=== PATIENT | female | born 1980 | race Caucasian/White ===

== ENCOUNTER 2020-11-07 07:59 | Emergency (ER) | payer OTHER ==
[2020-11-07 08:48] LABS: BILIRUBIN NEGATIVE (NEGATIVE); BLOOD 3+ Ery/uL (NEGATIVE); COLOR YELLOW (YELLOW); GLUCOSE (U) NORMAL (NORMAL); LEUKOCYTES 2+ Leu/uL (NEGATIVE); NITRITE NEGATIVE (NEGATIVE); PROTEIN 1+ mg/dL (NEGATIVE); SPECIFIC GRAVITY 1.025 (1.001-1.030); UROBILINOGEN 0.2 mg/dL (0.2-1.0)
[2020-11-07 08:49] LABS: CLARITY CLOUDY (CLEAR)
[2020-11-07 08:55] LABS: BACTERIA 2+; URINARY RBC 20-50
[2020-11-07 09:09] LABS: BASOPHIL 0.7 % (0-2); EOSINOPHIL 1.4 % (0-5); HGB 13.6 g/dl (12.5-16.0); LYMPHOCYTE 13.1 % (15-48); MCH 30.7 pg (25.0-31.0); MCHC 32.4 g/dL (32.0-36.0); MCV 94.8 fL (78.0-100.0); MONOCYTE 6.8 % (0-12); MPV 11.4 fL (6.0-9.5); NEUTROPHIL 77.7 % (41-80); NRBC 0; PLT 189 K/uL (150-400); RBC 4.43 M/uL (4.20-5.40); RDW 12.1 % (11.5-14.0); WBC 7.4 K/uL (4.0-10.5)
[2020-11-07 09:18] LABS: BUN/CREAT RATIO (CALC) 14.9 RATIO; CREATININE 1.01 mg/dL (0.51-0.95); POTASSIUM 4.8 mmol/L (3.5-5.1)
[2020-11-07] MEDS ORDERED: NAPROXEN500 MG PO (10:11)
[2020-11-07] MEDS ORDERED: MACROBID100 MG PO (10:11)
[2020-11-07] MEDS ORDERED: FLOMAX0.4 MG PO (10:11)
[2020-11-07] MEDS ORDERED: NORCO 5-325 TA1 EACH PO (10:11)
== END 2020-11-07 10:19 | disposition home or self-care (01) ==
LOC: FER 07:59
PROVIDERS: Emergency Medicine
DX: N13.6 Pyonephrosis (principal); Z87.442 Personal history of urinary calculi
CPT/HCPCS: 36415; 80048; 81001; 85025; 87088; J1885